=== PATIENT | female | born 1990 | race Caucasian/White ===

== ENCOUNTER 2016-12-30 20:59 | Emergency (ER) | payer SELFPAY ==
[~2016-12-30] VITALS: Ht 157.5 cm; Wt 136.0 kg
[2016-12-30 21:03] VITALS: Ht 157.5 cm; Wt 136.0 kg
== END 2016-12-31 00:22 | disposition left against medical advice (07) ==
LOC: E/R 20:59
DX: Z53.21 Procedure and treatment not carried out due to patient leaving prior to being seen by health care provider (principal)
CPT/HCPCS: 99281